=== PATIENT | male | born 1950 | race Caucasian/White ===

== ENCOUNTER → 2017-02-10 | Outpatient (CLI) | payer OTHER ==
[~2017-02-10] MED LIST: ACET325 PO; CIALIS PO; Coumadin10 MG PO; Crutch1 EACH MISC; ENOX30I; IBUP400 PO; Jantoven6 MG PO; MELO7.5 PO; PSYL5.85P PO; Percocet 10-321 EACH PO; WARF2 PO; WARF5 PO; XARELTO20 MG PO
== END | disposition home or self-care (01) ==
LOC: LAB 18:48
DX: N39.0 Urinary tract infection, site not specified (principal)
CPT/HCPCS: 87077; 87086; 87186

== ENCOUNTER 2017-06-24 00:58 | Day surgery (SDC) | payer OTHER ==
[~2017-06-24 00:58] MED LIST changes: -Jantoven6 MG PO
[2017-06-24] MEDS ORDERED: Jantoven6 MG PO (08:46)
== END 2017-06-24 09:01 | disposition home or self-care (01) ==
LOC: ATC 00:58
DX: N39.0 Urinary tract infection, site not specified (principal); E78.5 Hyperlipidemia, unspecified
CPT/HCPCS: 51798

== ENCOUNTER 2018-06-13 20:24 | Emergency (ER) | payer OTHER ==
[~2018-06-13] VITALS: Ht 170.2 cm; Wt 103.0 kg
[~2018-06-13 20:24] MED LIST changes: +Jantoven6 MG PO
[2018-06-13] MEDS ORDERED: XARELTO20 MG PO (20:32)
== END 2018-06-13 21:37 | disposition home or self-care (01) ==
LOC: ER 20:24
DX: R04.0 Epistaxis (principal); Z91.013 Allergy to seafood; Z91.018 Allergy to other foods; Z88.8 Allergy status to other drugs, medicaments and biological substances; Z79.899 Other long term (current) drug therapy; Z87.891 Personal history of nicotine dependence
CPT/HCPCS: 99283